=== PATIENT | male | born 1945 | race Asian ===

== ENCOUNTER 2016-10-25 20:03 | Emergency (ER) | payer OTHER ==
[2016-10-25 20:17] VITALS: BP 150/94; PULSE 88; TEMP 98.1; BMI 32.4
--- NOTE | 2016-10-25 20:31 | PDOC ---
History of Present Illness - General Chief Complaint: Blood Pressure Problem Stated Complaint: HIGH BP History Source: Patient Exam Limitations: No Limitations - History of Present Illness Initial Comments: 10/25/16 20:27 71-year-old male history of hypertension and dyslipidemia presents the ED for evaluation of blood pressure. Patient states home and took his blood pressure using a wrist blood pressure machine and had a reading of 213/86. Patient got concerned and came to the ER. Patient states had a mild frontal headache so took the blood pressure but states headache has resolved since in route to the ER. Patient has no other complaints presently and sees his physician routinely. Timing/Duration: resolved prior to arrival Associated Symptoms: reports: denies symptoms Past History - Travel Traveled outside of the country in the last 30 days: Yes - Past Medical History Allergies/Adverse Reactions: Allergies Allergy/AdvReac Type Severity Reaction Status Date / Time No Known Allergies Allergy Verified 10/25/16 20:15 Home Medications: Ambulatory Orders Metformin HCl [Glucophage -] 500 mg PO BID 11/11/14 Olmesartan Medoxomil [Benicar -] 40 mg PO DAILY 11/11/14 Prasugrel HCl [Effient] 5 mg PO DAILY 11/11/14 Ranolazine [Ranexa] 1,000 mg PO DAILY 11/11/14 Rosuvastatin Calcium [Crestor] 40 mg PO DAILY 11/11/14 Saxagliptin HCl [Onglyza] 2.5 mg PO DAILY 11/11/14 Asthma: Yes Diabetes: Yes HTN: Yes Hypercholesterolemia: Yes - Psycho/Social/Smoking Cessation Hx Anxiety: No Suicidal Ideation: No Smoking History: Current every day smoker Have you smoked in the past 12 months: Yes Number of Cigarettes Smoked Daily: 25 Information on smoking cessation initiated: No 'Breaking Loose' booklet given: 11/11/14 Patient Lives Alone: No Lives with/in: spouse/SO Review of Systems - Review of Systems Able to Perform ROS?: Yes Constitutional: No: Symptoms Reported HEENTM: No: Symptoms Reported Respiratory: No: Symptoms reported Cardiac (ROS): No: Symptoms Reported ABD/GI: No: Symptoms Reported : No: Symptoms Reported Musculoskeletal: No: Symptoms Reported Integumentary: No: Symptoms Reported Neurological: No: Symptoms reported Endocrine: No: Symptoms Reported Hematologic/Lymphatic: No: Symptoms Reported *Physical Exam - Vital Signs Last Vital Signs Temp Pulse Resp BP Pulse Ox 98.1 F 88 18 150/94 97 10/25/16 20:15 10/25/16 20:15 10/25/16 20:15 10/25/16 20:15 10/25/16 20:15 - Physical Exam General Appearance: Yes: Nourished, Appropriately Dressed. No: Apparent Distress HEENT: positive: EOMI, COCO, TMs Normal Neck: positive: Supple. negative: Other (no JVD) Respiratory/Chest: positive: Lungs Clear, Normal Breath Sounds. negative: Respiratory Distress, Accessory Muscle Use Cardiovascular: positive: Regular Rhythm, Regular Rate. negative: Murmur Integumentary: positive: Normal Color, Warm, Moist. negative: Swelling Neurologic: positive: Motor Strength 5/5 (ambulatory) Medical Decision Making - Medical Decision Making 10/25/16 20:29 Patient came here secondary to elevated BP on his wrist BP machine at home. Patient states initially had a mild frontal headache for decided to take his blood pressure when he had noted the reading. Patient states while in route headache had subsided and in triage had an BP of 150/94. Patient is currently asymptomatic with normal clinical exam here. Patient will be discharged home to follow-up with his PCP. *DC/Admit/Observation/Transfer Diagnosis at time of Disposition: Blood pressure check - Discharge Dispostion Disposition: HOME Condition at time of disposition: Good - Patient Instructions Printed Discharge Instructions: DI for High Blood Pressure Additional Instructions: Consider purchasing the bicep blood pressure machine versus the wrist one as this may give you inaccurate readings. Continue to take your medication as prescribed and follow-up with your PCP as needed
== END 2016-10-25 20:38 | disposition home or self-care (01) ==
LOC: JERFT 20:03
DX: I10 Essential (primary) hypertension (principal); E11.9 Type 2 diabetes mellitus without complications; Z79.84 Long term (current) use of oral hypoglycemic drugs; E78.00 Pure hypercholesterolemia, unspecified; J45.909 Unspecified asthma, uncomplicated; F17.210 Nicotine dependence, cigarettes, uncomplicated
CPT/HCPCS: 99281-25